=== PATIENT | female | born 1970 | race Caucasian/White ===

== ENCOUNTER → 2024-10-30 10:05 | Outpatient (CLI) | payer BC, SELFPAY ==
[2024-10-31 14:08] LABS: Candida species Negative (Negative); Gardnerella vaginalis Positive (Negative); Trichomoas vaginalis Negative (Negative)
== END ==
PROVIDERS: PCP Internal Medicine; Visit Provider Specialist
DX: N89.8 Other specified noninflammatory disorders of vagina (principal); L29.2 Pruritus vulvae; A63.0 Anogenital (venereal) warts
CPT/HCPCS: 81514; 87480; 87510; 87660